=== PATIENT | male | born 1975 | race Two or more races ===

== ENCOUNTER 2024-08-17 14:42 | Emergency (ER) | payer MEDICAID, SELFPAY ==
[2024-08-17 14:59] VITALS: BP 174/104; PULSE 105; RESP 16; TEMP 36.9; O2SAT 97; BMI 29.7
--- NOTE | 2024-08-17 15:07 | XR_ITS ---
Examination: CT brain head without contrast. 2-D sagittal coronal reconstructions Date and time of exam:August 17, 2024 at 1637 hours Comparison July 24, 2004 CTDI: vol (mGy):52.6 DLP: (mGycm):1140 Technique: Multiple CT axial sections of the brain have been obtained, 5 mm slice thickness. Contrast has not been administered. 2-D sagittal, coronal reconstructions have been obtained Low dose protocols were performed. One or more of the following dose reduction techniques were used; automated exposure control, adjustment of the mA and/or KV according to patient size, use of iterative reconstruction technique. Findings: No significant ventricular enlargement. Intra-axial or extra-axial hemorrhage density is not seen. No mass effect or midline shift Basal cisterns are not remarkable. Fourth ventricle is midline. Cranial vault intact. Impression: Negative for acute hemorrhage, mass effect or midline shift
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
== END 2024-08-17 17:48 | disposition home or self-care (01) ==
PROVIDERS: Emergency Provider Family Medicine
DX: S00.03XA Contusion of scalp, initial encounter (principal); V49.60XA Unspecified car occupant injured in collision with unspecified motor vehicles in traffic accident, initial encounter; M54.2 Cervicalgia
CPT/HCPCS: 70450; 70486; 72125; 99284